=== PATIENT | female | born 1975 | race Caucasian/White ===

== ENCOUNTER 2025-04-11 12:42 | Emergency (ER) | payer OTHER ==
[~2025-04-11] VITALS: Ht 162.6 cm; Wt 50.8 kg
[~2025-04-11 12:42] MED LIST: CODACE30 PO; CYCL10 PO; GABA300 PO; IBUP600 PO; IBUP800 PO; NAPR220 PO; NITR100CA PO; Norco 5-325 Ta1 EACH PO; VICODIN 5-3001 EACH PO
[2025-04-11 13:14] VITALS: BP 159/97
== END 2025-04-11 13:21 | disposition home or self-care (01) ==
LOC: ER 12:42
DX: M25.531 Pain in right wrist (principal); G89.29 Other chronic pain; I10 Essential (primary) hypertension; F17.200 Nicotine dependence, unspecified, uncomplicated
CPT/HCPCS: 99283-25